=== PATIENT | female | born 1945 | race Caucasian/White ===

== ENCOUNTER 2017-04-09 05:05 | Inpatient (IN) | payer OTHER ==
[~2017-04-09] VITALS: Ht 152.4 cm; Wt 66.7 kg
[~2017-04-09 05:05] MED LIST: ATIVAN0.5 M1 PO; ATORVASTATIN CA40 MG PO; BIOTIN2500 MCG PO; CALCIUM500 M1 PO; ENTERIC ASPIRI325 MG PO; LECITHIN1200 M2 PO; LISINOPRIL10 MG PO; LISINOPRIL20 M1 PO; LISINOPRIL40 M1 PO; OMEPRAZOLE20 M2 PO; SEA-OMEGA 50 C1 EACH PO; TOPROL XL100 M1 PO; TOPROL XL50 M1 PO; VITAMIN C500 M6 PO
--- NOTE | 2017-04-09 11:08 | Operative Report ---
Operative/Inv Procedure Report Surgery Date: 04/09/17 Name of Procedure: Right carotid thromboendarterectomy with patch angioplasty Pre-Operative Diagnosis: Asymptomatic high-grade carotid stenosis Post-Operative Diagnosis: Same Estimated Blood Loss: less than 50ml Surgeon/Dye Boarding Machine Operator: TITI SANTANA,CHANELL LOJA MD, MARK Anesthesia: laryngeal mask airway Implants: Bovine pericardial patch Complications: None Condition: Stable to PACU Operative Indication: This is a 71-year-old female with past medical history significant for hypertension, hyperlipidemia and severe smoking. She previously had a TIA but has been asymptomatic for quite some time. She presented with a high-grade right carotid stenosis. Risks benefits and alternatives explained to the patient including bleeding infection pain scar and stroke. She decide to proceed with intervention. Please note a second surgeon and was required to assist in this case due to the lack of an adequate PA/resident to assist in the case. Operative/Procedure Note Note: Patient brought to the operating room and laid supine on the table. A timeout was held in accordance with [facility] policy. A Garcia was placed but was removed at the end of the procedure. Over the anterior border of the sternocleidomastoid and incision was made. This was performed with a 15 blade. Sharp dissection was carried down through the skin and subcutaneous tissue to the carotid artery. This was dissected free proximally and distally. It was circumferentially controlled and the superior thyroid artery was ligated. The patient was bolused with 6000 units of heparin during the case. A Boykin scissor an 11 blade were used to open the artery after the artery was occluded with clamps. Pulsatile backbleeding was noted. A dense hemorrhagic plaque was noted in the proximal ICA. This was excised with a freer elevator and passed off the field. The distal intima was tacked down with 6-0 Prolene suture 2. Ring forceps were used to clean the intima of debris. A bovine pericardial patch was then brought into the field. It was sewn circumferentially on the anterior surface of the artery and tied down. All occluding clamps were then removed. 2 interrupted Prolene sutures were used for hemostasis. Pulsatile flow was noted into the internal carotid artery which was excellent on Doppler. The wound was then copious irrigated. Surgi-Lawson was placed inside the wound for hemostasis. The wound was closed with a running Vicryl suture in the platysmal layer and with skin caden. The sponge, needle, and instrument counts were correct. The patient tolerated the procedure well was transported to the recovery room. She was noted to be awake and neurologically intact. CC: STEVE SANTANA,KEYANA Alanis
--- NOTE | 2017-04-09 11:49 | Admission Core Measures ---
Acute Coronary Syndrome Inclusion Criteria ACS Diagnosis No Inpatient Core Measures LDL Reminder: If No, please order W/I first 24hr of stay Congestive Heart Failure Inclusion Criteria CHF Diagnosis No Cerebrovascular accident Inclusion Criteria CVA/TIA Diagnosis No Inpatient Core Measures Bedside Swallow Eval Reminder: If BSE failed, place ST order Antithrombotic Reminder: Order Antithrombotic Medication by end of day 2 Antithrombotic Reminder: Document Reason Antithrombotic Not ordered by end of day 2 AFIB/Flutter Reminder: If Present, add to problem list AFIB/Flutter Reminder: Order Anticoag Medication for pts with AFIB/Flutter Atherosclerosis Reminder: If Present, add to problem list LDL Reminder: If No, please order W/I first 24hr of stay PT Order Reminder: If No, please order Venous thromboembolism Inpatient Core Measures VTE Risk Factors: Age > 40, [facility] d/t No contraindications No VTE Pharm Prophylaxis d/t No contraindications Inclusion Criteria - Per Current guidelines, there needs to be overlap - treatment for the first 5 days of Warfarin therapy. - Parenteral Anticoagulation (IV or SC) needs to be - given along with Warfarin therapy. VTE Diagnosis No VTE Type NONE VTE Confirmed by (Test) NONE Problem List As ranked by this Provider includes Assessment & Plan 1. S/P carotid endarterectomy 2. Carotid artery stenosis 3. Hypertension HOME MEDS Home Med List Ascorbate Calcium (Vitamin C) 500 MG TABLET 1 TAB PO AD SUPPLEMENT (Reported) Aspirin (Enteric Aspirin) 325 MG ECT 1 TAB PO DAILY brain health Atorvastatin Calcium (Lipitor) 40 MG TAB 40 MG PO 1700 Hyperlipidemia Biotin (Unknown Strength) CAPSULE (Unknown Dose) PO DAILY SUPPLEMENT ( Reported) Calcium Carbonate (Calcium) (Unknown Strength) TABLET (Unknown Dose) PO DAILY SUPPLEMENT (Reported) Fish Oil (Sea-[place] 50 Capsule) (Unknown Strength) CAPSULE (Unknown Dose) PO DAILY SUPPLEMENT (Reported) Lecithin, Soy (Lecithin) (Unknown Strength) CAPSULE (Unknown Dose) PO DAILY SUPPLEMENT (Reported) Lisinopril 40 MG TABLET 1 TAB PO DAILY HTN (Reported) Metoprolol Succ XL (Toprol XL) 100 MG TAB.ER.24H 1 TAB PO NIGHTLY TACCY ( Reported) Omeprazole 20 MG CAPSULE.DR 1 CAP PO DAILY GI (Reported)
[2017-04-09 14:00] VITALS: BP 158/60
--- NOTE | 2017-04-09 14:38 | PN- Vascular Surgery ---
Subjective Subjective: POST-OP NOTE: No complaints at this time. Some expected soreness involving her right neck. Tolerating clears. No nausea. Not yet out of bed post-op. Still due to void. Reports history of anxiety, for which she occasionally takes "low dose ativan". Objective Vital Signs and I&Os pacu flowsheet reviewed (vss, metoprolol given in pacu, to clarify dose with DARIUSZ silva) Physical Exam: General - alert & oriented. comfortable. no acute distress. Neck - right neck dressing stained but intact. no drains. no hematoma. Lungs - clear bilaterally. no w/r/r. Cardiac - s1s2. reg. Abdomen - soft. nontender. Extremities - warm bilaterally. no c/c/e. calves soft and nontender b/l. athrombics active b/l. nvi. inspector printed circuit boards strength 5/5, equal. sensation grossly intact. Current Medications: Current Medications Sig/Darling Start time Last Medication Dose Route Stop Time Status Admin Acetaminophen 1,000 MG Q6 04/09 1200 AC IV 04/10 1159 Aspirin Buffered 325 MG DAILY 04/10 1000 AC PO Atorvastatin Calcium 40 MG 1700 04/09 1700 AC PO Dextrose/Sodium 1,000 ML Q10H 04/09 1230 AC Chloride IV Docusate Sodium 100 MG BID 04/09 2200 AC PO Heparin Sodium 5,000 UNIT Q8 04/09 2200 AC (Porcine) SC Lisinopril 40 MG DAILY 04/10 1000 AC PO Metoprolol Succinate 100 MG DAILY 04/10 1000 AC PO Morphine Sulfate 2 MG Q3P PRN 04/09 1230 AC IV Omeprazole 20 MG DAILY AC 04/10 0700 AC PO Ondansetron HCl 4 MG Q6P PRN 04/09 1230 AC IV Oxycodone HCl 5 MG Q4-6 PRN PRN 04/09 1230 AC PO Oxycodone HCl 10 MG Q4-6 PRN PRN 04/09 1230 AC PO Assessment/Plan Assessment/Plan This 71 year old female with hx cva, htn, hld, gerd, is POD#0 s/p R carotid thromboendarterectomy with patch angioplasty for asymptomatic high-grade carotid stenosis advance diet as tolerated asa 325 daily, given in pacu home meds ordered, including beta gavino hep sc - dvt ppx amena for continuous bp monitoring f/u am labs f/u urinalysis from OR no further antibiotics needed d/c planning tomorrow Core Measures/Miscellaneous Venous Thromboembolism VTE Risk Factors: Age > 40, Surgery VTE Contraindications: No Contraindications VTE Diagnosis: No VTE Type: NONE VTE Confirmed by (Test): NONE Beta Gavino Is Beta Gavino a Home Med? Yes If Yes, Was This Ordered Today? Yes Antibiotics Is Patient on Antibiotics? No
--- NOTE | 2017-04-09 14:54 | Patient Discharge Instructions ---
Discharge Instructions General Discharge Information You were seen/treated for: Asymptomatic high-grade carotid stenosis You had these procedures: Right carotid thromboendarterectomy with patch angioplasty Watch for these problems: fever>101.3, increased pain, redness/swelling/drainage, acute mental status changes, slurred speech, dizziness Call Surgeon to remove: Caden No bath, but you may shower: Yes Other wound care: ok to removal dressing in 24 hours. caden to be removed at follow up visit. ok to shower. keep incision clean & dry. Diet Continue normal diet: Yes Recommended Diet: Heart Healthy Activity Full Activity/No Limits: No Activity Self Limited: Yes Pounds, do NOT lift more than: 10 Other activity limits: no heavy lifting. no strenuous activity. Acute Coronary Syndrome Inclusion Criteria At DC or during hospital stay patient has or had the following: ACS DIAGNOSIS No Discharge Core Measures Meds if any: Prescribed or Continued at Discharge Meds if any: NOT Prescribed or Continued at Discharge Congestive Heart Failure Inclusion Criteria At DC or during hospital stay patient has or had the following: CHF DIAGNOSIS No Discharge Core Measures Meds if any: Prescribed or Continued at Discharge Meds if any: NOT Prescribed or Continued at Discharge Cerebrovascular accident Inclusion Criteria At DC or during hospital stay patient has or had the following: CVA/TIA Diagnosis No Discharge Core Measures Meds if any: Prescribed or Continued at Discharge Meds if any: NOT Prescribed or Continued at Discharge Venous thromboembolism Inclusion Criteria VTE Diagnosis No VTE Type NONE VTE Confirmed by (Test) NONE Discharge Core Measures - Per Current guidelines, there needs to be overlap - treatment for the first 5 days of Warfarin therapy. - If discharged on Warfarin prior to 5 days of - overlap therapy, the patient will need to be - assessed for post discharge needs including - *Post discharge parental anticoagulation - *Warfarin and/or parental anticoagulation education - *Follow up date to check INR post discharge At least 5 days overlap therapy as Inpatient No Meds if any: Prescribed or Continued at Discharge Note: Overlap Therapy is Warfarin and Anticoagulant Meds if any: NOT Prescribed or Continued at Discharge
[2017-04-09] MEDS ORDERED: DOCUSATE SODIU100 M3 PO (14:58)
[2017-04-09] MEDS ORDERED: PERCOCET 5-3251 EACH PO (14:58)
--- NOTE | 2017-04-09 14:59 | Surg Short-stay <48hrs Dis Sum ---
Visit Information Visit Dates Admission Date: 04/09/17 Discharge Date: 04/10/17 Surgical Short Stay DC Summary Admission Diagnosis: Asymptomatic high-grade carotid stenosis Final Diagnosis: same s/p Right carotid thromboendarterectomy with patch angioplasty Procedure(s): Surgery Date: 04/09/17 Name of Procedure: Right carotid thromboendarterectomy with patch angioplasty Summary/Significant Findings: Electively scheduled right carotid thromboendarterectomy with patch angioplasty on 04/09/17 by for asymptomatic high-grade carotid stenosis, which went uneventfully. Her usual 325 mg aspirin dose was resumed post-operatively, with first dose given in the pacu. Arterial line monitoring continued overnight in the ICU for blood pressure monitoring. Her blood pressure medications were restarted post-operatively. She had no acute events, and was tolerating a diet prior to her discharge. No drains were left in place during surgery. Condition at Discharge: stable Discharge Disposition: home or self care Discharge instructions provided to patient/family: Yes Post discharge follow-up plan: follow up with within 7-10 days post-op pre-printed instructions provided when discharged
[2017-04-10] VITALS: BP 150/70
[2017-04-10 04:58] LABS: ABSOLUTE BASOPHIL COUNT 0 /CUMM (0.0-0.2); ABSOLUTE EOSINOPHIL COUNT 0.4 /CUMM (0.0-0.7); ABSOLUTE GRANULOCYTE CT 6.8 /CUMM (1.4-6.5); ABSOLUTE LYMPH COUNT 2.5 /CUMM (1.2-3.4); ABSOLUTE MONOCYTE COUNT 0.6 /CUMM (0.10-0.60); BASOPHIL % 0.3 % (0.0-2.0); EOSINOPHIL % 3.6 % (0-5); GRANULOCYTE % 65.9 % (42.2-75.2); HEMATOCRIT 31.1 % (37-47); MEAN CORPUSCULAR HGB 31.1 PG (27.0-31.0); MEAN CORPUSCULAR HGB CONC 33.8 G/DL (33.0-37.0); MEAN CORPUSCULAR VOLUME 92.2 FL (81.0-99.0); MEAN PLATELET VOLUME 8.3 FL (7.4-10.4); PLATELET COUNT 215 /CUMM (130-400); RED BLOOD CELL CT 3.38 /CUMM (4.20-5.40); WHITE BLOOD CELL COUNT 10.4 /CUMM (4.8-10.8)
--- NOTE | 2017-04-10 05:32 | PN- Vascular Surgery ---
See Addendum Subjective Subjective: No complaints. Tolerating diet. No nausea. Denies dizziness. No shortness of breath. No chest pains. Out of bed to commode. Voiding without difficulty. She admits she didn't sleep well and is looking forward to going home today. Objective Vital Signs and I&Os Vital Signs Date Time Temp Pulse Resp B/P B/P Pulse O2 O2 Flow FiO2 Mean Ox Delivery Rate 04/10 0400 95 Nasal 1.0L Cannula 04/10 0000 97.6 71 21 150/70 94 Nasal 1.0L Cannula 04/10 0000 94 Nasal 1.0L Cannula 04/09 2000 92 Room Air 04/09 1612 69 176/84 04/09 1600 95 Room Air 04/09 1400 98.0 70 18 158/60 97 Nasal 2.0L Cannula 04/09 1400 98 Nasal 2.0L Cannula Intake & Output 04/10 0800 04/10 0000 04/09 1600 04/09 0800 04/09 0000 04/08 1600 Intake Total 1229 Output Total 2150 Balance -921 Intake, IV 889 Intake, Oral 340 Output, Urine 2150 Patient 147 lb Weight Weight Bed scale Measurement Method Physical Exam: General Assessment/Plan Assessment/Plan This 71 year old female with hx cva, htn, hld, gerd, is POD#1 s/p R carotid thromboendarterectomy with patch angioplasty for asymptomatic high-grade carotid stenosis tolerating diet. d/c ivf continue asa 325 daily home meds ordered, including beta gavino (1/2 her usual dose of toprol given yesterday) give lisinopril 40 mg this morning hep sc - dvt ppx d/c amena d/c home today will d/w vascular surgeon Core Measures/Miscellaneous Venous Thromboembolism VTE Risk Factors: Age > 40, Surgery VTE Contraindications: No Contraindications VTE Diagnosis: No VTE Type: NONE VTE Confirmed by (Test): NONE Beta Gavino Is Beta Gavino a Home Med? Yes If Yes, Was This Ordered Today? Yes Antibiotics Is Patient on Antibiotics? No
[2017-04-10 08:00] VITALS: BP 168/72
--- NOTE | 2017-04-10 08:43 | PN- Vascular Surgery ---
Surgical Brief Attending Note Brief Attending Note: VASCULAR ATTENDING NOTE: Pt. now POD #1 s/p R. CEA. No acute events. No complaints. PE: AF/VSS Neck- soft, dressing dry Neuro- no focal defecits, small marginal mandibular nerve lip praxia A/P: January D/C home today Leave dressing in plave to be removed tommotow F/U in [facility] office 04/20 Cont.ASA
[2017-04-10 10:30] VITALS: BP 162/74
== END 2017-04-10 10:40 | DRG 39 ==
LOC: SDA 05:05 → CRI 05:05 → ENRESERV 11:57 → ENTRNSPT 13:01 → EDTRNSPTSTS 13:16 → CRI 13:35 → CMPTRNSPT 13:42 → CRI 04-10 10:40
PROVIDERS: Physician Assistant; ADMIT Surgery Vascular Surgery
PROC: 03CK0ZZ Extirpation of Matter from Right Internal Carotid Artery, Open Approach (ICD-10-PCS; principal; 2017-04-09)
PROC: 03UK0KZ Supplement Right Internal Carotid Artery with Nonautologous Tissue Substitute, Open Approach (ICD-10-PCS; 2017-04-09)
DX: I65.21 Occlusion and stenosis of right carotid artery (principal); I10 Essential (primary) hypertension; Z86.73 Personal history of transient ischemic attack (TIA), and cerebral infarction without residual deficits; E78.5 Hyperlipidemia, unspecified; Z87.891 Personal history of nicotine dependence; F41.9 Anxiety disorder, unspecified; K21.9 Gastro-esophageal reflux disease without esophagitis
CPT/HCPCS: CCU; 36415; 82436; 87086; J0131; J1644; J2405; J7042; J7508